=== PATIENT | male | born 1930 | race Caucasian/White ===

== ENCOUNTER 2019-10-19 14:45 | Observation (INO) | payer OTHER ==
--- NOTE | 2019-10-19 15:22 | PDOC ---
Attending Attestation - Resident Resident Name: Melissa Foreman - ED Attending Attestation I have performed the following: I have examined & evaluated the patient, The case was reviewed & discussed with the resident, I agree w/resident's findings & plan, Exceptions are as noted - HPI HPI: 10/19/19 15:23 84y M hx of PM placement (prior syncope) on eliquispresents with complaint of chest pain. The patient complaints of intermittent R sided chest pain, cp seems to only occur in the evenings, describes it as a sharp discomfort associated with nausea w/o vomiting, and with mild sob. Symptoms typically resolve during the day. Pt also endorses having dark color stool the past few days. pt jennie any palpitations, dizziness, vomiting, fever/chills, diarrhea, abd pain, back pain. Patient mentions that the pain seems to be exacerbated by moving of his right arm denies any recent traumas or injuries. exam: GENERAL: The patient is awake, alert, and fully oriented, Nontoxic - in no acute distress. HEAD: Normocephalic, atraumatic. EYES: extraocular movements intact, sclera anicteric, conjunctiva clear. ENT: Normal voice, Moist mucous membranes. NECK: Normal range of motion, supple LUNGS: Breath sounds equal, clear to auscultation bilaterally. No wheezes, no rhonchi, no rales. HEART: Regular rate and rhythm, normal S1 and S2 without murmur, rub or gallop. ABDOMEN: Soft, nontender, No guarding, no rebound. No CVA tenderness EXTREMITIES: Normal range of motion, trace edema, no calf tenderness, negative Homans sign, distal pulses symmetric on palpation NEUROLOGICAL: No facial assymetry, Normal speech, moving all 4 extremity spontaneously symmetrically PSYCH: Normal mood, normal affect. SKIN: Warm, Dry, normal turgor, Differential for the patients chest pain includes but not limited to msk pain, acute coronary syndrome, gastritis, Do not feel that dissection/AAA is is likely due to onset and clincal presentation of symptoms (lack of palpable pulsatile mass, symmetric pulses, lack of associated neurologic sypmtoms and intermittent symptoms only at night) will obtain blood work including: cbc, cmp, UA, UHCG ekg, troponin to r/o acs cxr to r/o acute pulmonary disease - Physicial Exam PE: 10/20/19 10:08 see aobove - Medical Decision Making 10/19/19 16:40 pts labs reviewed trop neg will admit fo further management of chest pain Heart Score/ECG Review - ECG Impressions Comment:: 10/19/19 17:46 Twelve-lead EKG was performed and reviewed by me. AV dual paced rhythm rate of 61
[2019-10-19 16:01] LABS: EOS % 1.8 % (0-4.5); HEMATOCRIT 42.7 % (35.4-49); HEMOGLOBIN 14.4 GM/dL (11.7-16.9); LYMPH % 44.9 % (8-40); MCH 30.9 pg (25.7-33.7); MCHC 33.9 g/dl (32.0-35.9); MEAN CELL VOLUME 91.2 fl (80-96); MEAN PLT VOLUME 9.3 fl (7.5-11.1); NEUT % 41.3 % (42.8-82.8); PLATELET COUNT 223 K/MM3 (134-434); RBC 4.68 M/mm3 (4.00-5.60); RDW 14.4 % (11.9-15.9); WHITE BLOOD COUNT 6.9 K/mm3 (4.0-10.0)
[2019-10-19 16:14] LABS: INR 1.28 (0.83-1.09); PROTHROMBIN TIME (PATIENT) 15.2 SEC (9.7-13.0)
[2019-10-19 16:17] LABS: ACTIVATED PTT 38.7 SECONDS (25.2-36.5)
[2019-10-19 16:22] LABS: ALBUMIN 3.7 g/dl (3.4-5.0); BILIRUBIN,TOTAL 0.6 mg/dL (0.2-1); BLOOD UREA NITROGEN 24.9 mg/dL (7-18); CALCIUM 9.6 mg/dL (8.5-10.1); CREATININE 1.3 mg/dL (0.55-1.3); POTASSIUM 4.5 mmol/L (3.5-5.1); TOT PROT 7.6 g/dl (6.4-8.2)
--- NOTE | 2019-10-19 16:23 | PDOC ---
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 German speaking only. Radiates down R arm and into back. Reports that it was present for the past 3 days, associated with nausea w/o vomiting, mild SOB, and a headache last night which has since resolved. Also states that he had had black stools for the past week. Here today due to persistence of pain , but has not worsened. Describes the pain as pressure, 8/10. Has not taken anything for the pain. Does note that around 4 months ago, he went to an ER due to SOB and was told he had "fluid in his lungs". Has had an echo in the past, but does not remember when or what the result was. Had endoscopy in July 2019 showing gastric polyp. 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. Past History - Past Medical History Allergies/Adverse Reactions: Allergies Allergy/AdvReac Type Severity Reaction Status Date / Time No Known Allergies Allergy Verified 07/28/14 11:21 Home Medications: Ambulatory Orders Metoprolol Tartrate [Lopressor -] 25 mg PO BID 02/25/13 Amlodipine Besylate 10 mg PO DAILY 10/19/19 Brimonidine Tartrate [Alphagan P 0.1% -] 1 drop OU HS 10/19/19 Apixaban [Eliquis] 5 mg PO DAILY 10/20/19 Anemia: No Asthma: No Cancer: No Cardiac Disorders: Yes CVA: No COPD: No CHF: No Dementia: No Diabetes: No GI Disorders: No Disorders: Yes (BPH) HTN: Yes Hypercholesterolemia: Yes Liver Disease: No Seizures: No Thyroid Disease: No - Surgical History Abdominal Surgery: No Appendectomy: No Cardiac Surgery: No Cholecystectomy: No Lung Surgery: Yes (LEFT CHEST TUBE-ACCIDENT) Neurologic Surgery: No Orthopedic Surgery: No - Psycho Social/Smoking Cessation Hx Smoking History: Current every day smoker Information on smoking cessation initiated: No Hx Alcohol Use: No Drug/Substance Use Hx: No Substance Use Type: None Hx Substance Use Treatment: No Review of Systems - Review of Systems Comments:: 10/19/19 17:34 GENERAL/CONSTITUTIONAL: denies fever, chills, diaphoresis, generalized weakness , malaise, loss of appetite, weight change HEAD, EYES, EARS, NOSE AND THROAT: denies rhinorrhea, nasal congestion, throat pain, throat swelling, difficulty swallowing, mouth swelling, ear pain, eye pain , visual changes NEUROLOGIC: endorses headache yesterday which has now resolved. Denies focal weakness or paresthesias, dizziness, unsteady gait, seizure, mental status changes, bladder or bowel incontinence CARDIOVASCULAR: endorses R chest pain. Denies syncope, palpitations, irregular heart rate, lightheadedness, peripheral edema RESPIRATORY: endorses mild SOB. Denies cough, orthopnea, wheezing, stridor, hemoptysis GASTROINTESTINAL: endorses nausea without vomiting. Denies abdominal pain, abdominal distension, diarrhea, constipation, melena, hematochezia GENITOURINARY: denies dysuria, frequency, urgency, hesitancy, hematuria, flank pain, genital pain MUSCULOSKELETAL: denies myalgia, arthralgia, joint swelling, back pain, neck pain SKIN: denies rash, itching, pallor HEMATOLOGIC/IMMUNOLOGIC: denies easy bleeding, easy bruising, lymphadenopathy, frequent infections ENDOCRINE: denies unexplained weight gain, unexplained weight loss, heat intolerance, cold intolerance PSYCHIATRIC: denies anxiety, depression, suicidal or homicidal ideation, hallucinations *Physical Exam - Vital Signs Last Vital Signs Temp Pulse Resp BP Pulse Ox 97.4 F L 79 20 133/66 97 10/19/19 14:50 10/19/19 15:51 10/19/19 15:51 10/19/19 15:51 10/19/19 15:51 - Physical Exam 10/19/19 17:35 Gen: well-developed, well-nourished, NAD Neuro: AAOX4, CN II-XII intact, FTN intact, EOMI, PERRLA, 5/5 strength, SILT HEENT: atraumatic, normocephalic Neck: trachea midline, supple CV: regular rate, regular rhythm, holosystolic blowing murmur Pulm: CTA b/l, no wheezing Abd: soft, non-distended, non-tender MSK: full ROM, intact pulses Extr: no edema, no deformities Skin: warm, dry Heart Score/ECG Review - History History: Moderately suspicious - Electrocardiogram EKG: Non specific repolarization disturbance - Age Age: >/= 65 - Risk Factors Risk Factors Heart Score: Yes Hx Hypertension, Yes Hx Obesity Based on the list above the patient has:: 1-2 risk factors - Troponin Troponin: </= normal limit - Score Heart Score - Total: 5 ED Treatment Course - LABORATORY CBC & Chemistry Diagram: 10/21/19 08:03 10/21/19 08:03 - ADDITIONAL ORDERS Additional order review: Laboratory Results 10/19/19 10/19/19 15:41 15:41 PT with INR 15.20 H INR 1.28 H PTT (Actin FS) 38.7 H Sodium 136 Potassium 4.5 Chloride 104 Carbon Dioxide 27 Anion Gap 5 L BUN 24.9 H Creatinine 1.3 Est GFR (CKD-EPI)AfAm 56.46 Est GFR (CKD-EPI)NonAf 48.72 Random Glucose 106 Calcium 9.6 Total Bilirubin 0.6 AST 29 ALT 32 Alkaline Phosphatase 78 Total Protein 7.6 Albumin 3.7 10/19/19 15:41 RBC 4.68 MCV 91.2 MCHC 33.9 RDW 14.4 MPV 9.3 Neutrophils % 41.3 L Lymphocytes % 44.9 H D Monocytes % 11.0 H Eosinophils % 1.8 Basophils % 1.0 Medical Decision Making - Medical Decision Making 10/19/19 16:56 Concern for ACS vs PNA. Low risk for PE considering Wells score of 0, on Eliquis. - CBC, CMP - EKG, trop - CXR - heme occult 10/19/19 16:59 EKG AV dual paced at 61 bpm. 10/19/19 17:02 Labs unremarkable, trop negative. 10/19/19 17:38 CXR with poor inspiratory effort, no acute issues. Will admit for r/o ACS. Discharge - Discharge Information Problems reviewed: Yes Clinical Impression/Diagnosis: Chest pain Condition: Good Disposition: TRANSFER ACUTE CARE/OTHER HOSP - Admission Yes - Follow up/Referral - Patient Discharge Instructions - Post Discharge Activity
[2019-10-19 17:30] LABS: N-TERMINAL BNP 225.2 pg/ml (5-450)
[2019-10-19] MEDS ORDERED: METOPROLOL TARTRATE 25 MG TABLET (FP) ONE (22:34)
[2019-10-19] MEDS: METOPROLOL TARTRATE 25 MG TABLET (FP) PO SCH (22:46)
--- NOTE | 2019-10-20 00:42 | HP ---
CHIEF COMPLAINT: Chest pain PCP: Cardio: Pepe Gann [phone] HISTORY OF PRESENT ILLNESS: Pt is an 89 y/o M with PMH HTN, PPM (unclear why it was placed, but records show it was replaced in 2015), HLD, BPH who presented to ED with complaint of CP. He is admitted for ACS r/o. Pt is a poor historian. Initially unclear about chief complaint; after prodding , admits to R chest pain for 3 days. Pt also complains of R back pain and R arm pain, but states the pain is not radiating to these regions. He also complains of nausea for the same period accompanied by black stools. He admits to taking pepto bismol for his nausea over the same time course. He has not vomited. Endo Jul 2019 gastric and duodenal polyp. Also stated he had a recent echo, but he does not recall the result. He states that 4 months ago, he had an episode of "water in the lungs" but is unable to provide any meaningful details surrounding that event. He takes Lopressor 25 bid and amlodipine 10 qd for HTN. He also takes eliquis 5 qd, but does not know why. ER course was notable for: (1) EKG AV dual paced at 61 bpm. Trop neg (2) trop neg. (3) Recent Travel: denies PAST MEDICAL HISTORY: HTN, PPM, HLD, BPH, ?AF (irregular cardiac rhythm on exam, pt on coumadin) PAST SURGICAL HISTORY: PPM Social History: Smoking: remote history Alcohol: denies Drugs: denies Allergies No Known Allergies Allergy (Verified 07/28/14 11:21) HOME MEDICATIONS: Home Medications Medication Instructions Recorded Metoprolol Tartrate [Lopressor -] 25 mg PO BID 02/25/13 Amlodipine Besylate 10 mg PO DAILY 10/19/19 Brimonidine Tartrate [Alphagan P 1 drop OU HS 10/19/19 0.1% -] REVIEW OF SYSTEMS CONSTITUTIONAL: Absent: fever, chills, diaphoresis, generalized weakness, malaise, loss of appetite, weight change HEENT: Absent: rhinorrhea, nasal congestion, throat pain, throat swelling, difficulty swallowing, mouth swelling, ear pain, eye pain, visual changes CARDIOVASCULAR: chest pain Absent: , syncope, palpitations, irregular heart rate, lightheadedness, peripheral edema RESPIRATORY: Absent: cough, shortness of breath, dyspnea with exertion, orthopnea, wheezing, stridor, hemoptysis GASTROINTESTINAL: Absent: abdominal pain, abdominal distension, nausea, vomiting, diarrhea, constipation, melena, hematochezia GENITOURINARY: Absent: dysuria, frequency, urgency, hesitancy, hematuria, flank pain, genital pain MUSCULOSKELETAL: Absent: myalgia, arthralgia, joint swelling, back pain, neck pain SKIN: Absent: rash, itching, pallor HEMATOLOGIC/IMMUNOLOGIC: Absent: easy bleeding, easy bruising, lymphadenopathy, frequent infections ENDOCRINE: Absent: unexplained weight gain, unexplained weight loss, heat intolerance, cold intolerance NEUROLOGIC: Absent: headache, focal weakness or paresthesias, dizziness, unsteady gait, seizure, mental status changes, bladder or bowel incontinence PSYCHIATRIC: Absent: anxiety, depression, suicidal or homicidal ideation, hallucinations. PHYSICAL EXAMINATION Vital Signs - 24 hr 10/19/19 10/19/19 10/19/19 14:50 15:15 15:51 Temperature 97.4 F L Pulse Rate 60 Pulse Rate [ 79 Apical] Respiratory 17 20 Rate Blood Pressure 125/59 L Blood Pressure 133/66 [Left Arm] O2 Sat by Pulse 100 97 97 Oximetry (%) 10/19/19 10/19/19 18:00 22:46 Temperature 97.5 F L Pulse Rate Pulse Rate [ 60 68 Apical] Respiratory 18 20 Rate Blood Pressure Blood Pressure 130/62 136/70 [Left Arm] O2 Sat by Pulse 100 99 Oximetry (%) Gen: NAD, AAOx3 HEENT: NCAT, EOMI Neck: supple, no jvd Cardio: rrr, normal s1s2, no systolic murmur Pulm: cta b/l Abd: soft, nontender, nondistended Ext: no edema Laboratory Results - last 24 hr 10/19/19 10/19/19 10/19/19 15:41 15:41 15:41 WBC 6.9 RBC 4.68 Hgb 14.4 Hct 42.7 MCV 91.2 MCH 30.9 MCHC 33.9 RDW 14.4 Plt Count 223 MPV 9.3 Absolute Neuts (auto) 2.8 Neutrophils % 41.3 L Lymphocytes % 44.9 H D Monocytes % 11.0 H Eosinophils % 1.8 Basophils % 1.0 Nucleated RBC % 0 PT with INR 15.20 H INR 1.28 H PTT (Actin FS) 38.7 H Sodium Potassium Chloride Carbon Dioxide Anion Gap BUN Creatinine Est GFR (CKD-EPI)AfAm Est GFR (CKD-EPI)NonAf Random Glucose Calcium Total Bilirubin AST ALT Alkaline Phosphatase Creatine Kinase 105 Troponin I 0.02 B-Natriuretic Peptide 225.2 Total Protein Albumin Stool Occult Blood 10/19/19 10/19/19 15:41 16:30 WBC RBC Hgb Hct MCV MCH MCHC RDW Plt Count MPV Absolute Neuts (auto) Neutrophils % Lymphocytes % Monocytes % Eosinophils % Basophils % Nucleated RBC % PT with INR INR PTT (Actin FS) Sodium 136 Potassium 4.5 Chloride 104 Carbon Dioxide 27 Anion Gap 5 L BUN 24.9 H Creatinine 1.3 Est GFR (CKD-EPI)AfAm 56.46 Est GFR (CKD-EPI)NonAf 48.72 Random Glucose 106 Calcium 9.6 Total Bilirubin 0.6 AST 29 ALT 32 Alkaline Phosphatase 78 Creatine Kinase Troponin I B-Natriuretic Peptide Total Protein 7.6 Albumin 3.7 Stool Occult Blood Negative ASSESSMENT/PLAN: Pt is an 89 y/o M with PMH HTN, PPM (unclear why it was placed, but records show it was replaced in 2015), HLD, BPH who presented to ED with complaint of CP. He is admitted for ACS r/o. Chest pain -EKG reportedly with paced rhythm, no st changes -trop negative -atypical cp -tele/obs -trend trop -Cardio consulted HTN -c/w amlodipine, lopressor ? Cardiac history -pt is a poor historian. Unclear what cardiac problems he has. Described episode of water in lungs. ? CHF. -Irregular rhythm on exam and on eliquis. ? paroxysmal AF -will need to call his MD to clarify history. -in light of recent echo, will wait to get result from outpt cardio before repeating R/o GIB -dark stools x 3 days -taking pepto bismol -FOBT neg -in light of hx gastric/duodenal polyp, will repeat FOBT. Consider GI consult Visit type - Emergency Visit Emergency Visit: Yes ED Registration Date: 10/19/19 Care time: The patient presented to the Emergency Department on the above date and was hospitalized for further evaluation of their emergent condition. - New Patient This patient is new to me today: Yes Date on this admission: 10/20/19 - Critical Care Critical Care patient: No ATTENDING PHYSICIAN STATEMENT I saw and evaluated the patient. I reviewed the resident's note and discussed the case with the resident. I agree with the resident's findings and plan as documented. SUBJECTIVE: OBJECTIVE: ASSESSMENT AND PLAN:
[2019-10-20 00:55] LABS: INR 1.28 (0.83-1.09); PROTHROMBIN TIME (PATIENT) 15.2 SEC (9.7-13.0)
--- NOTE | 2019-10-20 00:56 | PN ---
Teaching Attending Note Name of Resident: Giovany Marinelli ATTENDING PHYSICIAN STATEMENT I saw and evaluated the patient. I reviewed the resident's note and discussed the case with the resident. I agree with the resident's findings and plan as documented. 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 OBJECTIVE: Last Vital Signs Temp Pulse Resp BP Pulse Ox 97.5 F L 68 20 136/70 99 10/19/19 18:00 10/19/19 22:46 10/19/19 22:46 10/19/19 22:46 10/19/19 22:46 On physical exam patient was a comfortable appearing elderly man in no apparent distress, alert and oriented. Head was atraumatic normocephalic neck was supple with no JVD. Lungs are clear to auscultation bilaterally, no chest wall tenderness to palpation. Heart sounds were S1, S2 with systolic crescendo decrescendo murmur. Abdomen was soft, nontender no pedal edema appreciated on lower extremities. Abnormal Lab Results 10/19/19 10/19/19 10/19/19 15:41 15:41 15:41 Neutrophils % 41.3 L Lymphocytes % 44.9 H D Monocytes % 11.0 H PT with INR 15.20 H INR 1.28 H PTT (Actin FS) 38.7 H Anion Gap 5 L BUN 24.9 H 10/20/19 00:03 Neutrophils % Lymphocytes % Monocytes % PT with INR 15.20 H INR 1.28 H PTT (Actin FS) Anion Gap BUN EKG reviewed appears to be intermittently paced rhythm Chest x-ray appreciated, sclerotic aortic knob, high right lupe-diaphragm, left chest cardiac device in place. ASSESSMENT AND PLAN: 89-year-old man with atypical chest pain, EKG is paced rhythm troponin negative Telemetry observation Aspirin Statin Continue with home dose beta-alexandra Nitroglycerin as needed of chest pain Transthoracic echo N.p.o. for possible cardiac stress test Cardiology consultconsider cardiac device interrogation #CKD Nephrology consult Renal ultrasound Avoid nephrotoxins Control blood pressure A1c #History of atrial fibrillation on anticoagulation Continue with apixaban for anticoagulation DVT prophylaxisapixaban
[2019-10-20 00:58] LABS: ACTIVATED PTT 35.6 SECONDS (25.2-36.5)
[2019-10-20 09:02] LABS: BASO % 0.8 % (0-2.0); HEMATOCRIT 43.5 % (35.4-49); HEMOGLOBIN 14.7 GM/dL (11.7-16.9); LYMPH % 44.5 % (8-40); MCHC 33.7 g/dl (32.0-35.9); MEAN CELL VOLUME 91.9 fl (80-96); MEAN PLT VOLUME 9.4 fl (7.5-11.1); MONO % 9.8 % (3.8-10.2); NEUT % 42.9 % (42.8-82.8); PLATELET COUNT 222 K/MM3 (134-434); RBC 4.74 M/mm3 (4.00-5.60); RDW 14.9 % (11.9-15.9); WHITE BLOOD COUNT 6.3 K/mm3 (4.0-10.0)
--- NOTE | 2019-10-20 09:03 | PN ---
Progress Note, Physician Chief Complaint: Patient complaint of chest wall pain not in acute distress. History of Present Illness: Elderly man Yakut-speaking history of hypertension, CKD, pediculated fibrillation on anticoagulation status post pacemaker follow-up [facility] no known history of CAD as per cardiology note, history of congestive heart failure present with wearing chest wall pain with dyspnea on exertion at the time of examination is stable, EKG shows no acute ST-T changes troponin I are negative evaluated by cardiology recommended echocardiogram for evaluation of degree of aortic stenosis. - Current Medication List Current Medications: Active Medications Amlodipine Besylate (Norvasc -) 10 mg PO DAILY RIVERA Apixaban (Eliquis -) 5 mg PO DAILY RIVERA Metoprolol Tartrate (Lopressor -) 25 mg PO BID [facility] Last Admin: 10/19/19 22:46 Dose: 25 mg - Objective Vital Signs: Vital Signs Temperature 98.5 F 10/20/19 06:26 Pulse Rate 64 10/20/19 06:26 Respiratory Rate 18 10/20/19 06:26 Blood Pressure 106/56 L 10/20/19 06:26 O2 Sat by Pulse Oximetry (%) 98 10/20/19 08:09 General: Elderly man, comfortable, not in distress HEENT; mucous membranes moist, no anemia, no jaundice, PERRLA, no nystagmus Neck: No JVD, supple, no bruit, thyroid palpably normal, normal carotid pulsations. Chest: Nontender, clear to auscultation bilaterally CVS: S1-S2 irregular systolic murmur in aortic area no /gallop/rub Abdomen: Nondistended, soft, bowel sounds present. Extremities: Trace edema., No calf tenderness, pulses present SECOND OFFICER: AO X3 , no gross motor sensory deficit Labs: CBC, BMP 10/20/19 08:30 INR, PTT INR 1.28 (0.83-1.09) H 10/20/19 00:03 Problem List - Problems (1) Chest pain Assessment/Plan: Atypical chest wall pain, normal serial cardiogram no acute ST-T changes, evaluated by cardiology recommended no further work-up for ACS. Will continue beta-alexandra and apixaban for atrial fibrillation. Problems reviewed: Yes Code(s): R07.9 - CHEST PAIN, UNSPECIFIED (2) Aortic stenosis Assessment/Plan: Systolic murmur in the aortic area follow-up echocardiogram. Problems reviewed: Yes Code(s): I35.0 - NONRHEUMATIC AORTIC (VALVE) STENOSIS (3) Paroxysmal atrial fibrillation Assessment/Plan: Continue apixaban and metoprolol. Problems reviewed: Yes Code(s): I48.0 - PAROXYSMAL ATRIAL FIBRILLATION (4) Hypertension Assessment/Plan: Continue amlodipine. Problems reviewed: Yes Code(s): I10 - ESSENTIAL (PRIMARY) HYPERTENSION
[2019-10-20 09:29] LABS: ALBUMIN 3.9 g/dl (3.4-5.0); BLOOD UREA NITROGEN 23.4 mg/dL (7-18); CALCIUM 9.7 mg/dL (8.5-10.1); CREATININE 1.3 mg/dL (0.55-1.3); MAGNESIUM 2.2 mg/dL (1.8-2.4); POTASSIUM 4.5 mmol/L (3.5-5.1); TOT PROT 7.6 g/dl (6.4-8.2)
[2019-10-20] MEDS ORDERED: amLODIPine BESYLATE 10 MG TABLET (FP) PO SCH (10:00)
[2019-10-20] MEDS ORDERED: APIXABAN 5 MG TABLET PO SCH (10:00)
[2019-10-20] MEDS ORDERED: PT OWN MED DRAWER 7, Y5N ONE (10:29)
[2019-10-20] MEDS: METOPROLOL TARTRATE 25 MG TABLET (FP) PO SCH ×2 (10:46→21:09)
--- NOTE | 2019-10-20 14:30 | CON.CARD ---
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 No known ho CAD although reports previous admission for CHF. Has reproducible Rt sided chest and shoulder pain. No dyspnea. There has been dyspnea with effort. No edema.Patient is on Eliquis. - Alcohol/Substance Use Hx Alcohol Use: No - Smoking History Smoking history: Current every day smoker Home Medications - Allergies Allergies/Adverse Reactions: Allergies Allergy/AdvReac Type Severity Reaction Status Date / Time No Known Allergies Allergy Verified 07/28/14 11:21 - Home Medications Home Medications: Ambulatory Orders Metoprolol Tartrate [Lopressor -] 25 mg PO BID 02/25/13 Amlodipine Besylate 10 mg PO DAILY 10/19/19 Brimonidine Tartrate [Alphagan P 0.1% -] 1 drop OU HS 10/19/19 Apixaban [Eliquis] 5 mg PO DAILY 10/20/19 Review of Systems - Review of Systems Constitutional: reports: No Symptoms Eyes: reports: No Symptoms HENT: reports: No Symptoms Neck: reports: No Symptoms Cardiovascular: reports: Chest Pain Respiratory: reports: No Symptoms Gastrointestinal: reports: No Symptoms Genitourinary: reports: No Symptoms Breasts: reports: No Symptoms Reported Vital Signs: Vital Signs Temperature 97.6 F 10/20/19 10:00 Pulse Rate 59 L 10/20/19 10:00 Respiratory Rate 18 10/20/19 10:00 Blood Pressure 123/76 10/20/19 10:00 O2 Sat by Pulse Oximetry (%) 96 10/20/19 10:00 Constitutional: Yes: Well Nourished, No Distress Eyes: Yes: Conjunctiva Clear, EOM Intact HENT: Yes: Atraumatic, Normocephalic Neck: Yes: Supple, Trachea Midline Respiratory: Yes: Regular, CTA Bilaterally Gastrointestinal: Yes: Normal Bowel Sounds Cardiovascular: Yes: Regular Rate and Rhythm JVD: No Carotid Bruit: No PMI: Non-Displaced Heart Sounds: Yes: S1 Murmur: Yes: Systolic Murmur (late peaking Sys M LUSB.) Edema: No - Other Data Labs, Other Data: CBC, BMP 10/20/19 08:30 10/20/19 08:30 INR, PTT INR 1.28 (0.83-1.09) H 10/20/19 00:03 Troponin, BNP 10/19/19 10/20/19 10/20/19 15:41 02:25 08:30 Troponin I 0.02 0.02 0.03 B-Natriuretic Peptide 225.2 Troponin, BNP 10/19/19 10/20/19 10/20/19 15:41 02:25 08:30 Troponin I 0.02 0.02 0.03 B-Natriuretic Peptide 225.2 Apaced old [facility] - Results Chest X-ray: Report Reviewed Problem List - Problems (1) Chest pain Code(s): R07.9 - CHEST PAIN, UNSPECIFIED Assessment/Plan 89 M DM, Paroxysmal AF on AC, ho CHF and PPM. Admitted with chest pain. murmur is noted. 1. Chest pain. Atypical and reproducible. Do not feel that this is cardiac. Now resolved ECG without ischemic changes. ECG suggest possible old Inferior wall infarct. Continue medical managment of presumed CAD Statin BP control 2. Aortic stenosis murmur: Suspect significant stenosis is present. Echocardiogram 3. Afib Continue Eliquis 5mg bid.
[2019-10-20 17:38] VITALS: BMI 35.9
[2019-10-21 09:01] LABS: BASO % 0.7 % (0-2.0); EOS % 2.1 % (0-4.5); HEMATOCRIT 43.2 % (35.4-49); HEMOGLOBIN 14.6 GM/dL (11.7-16.9); LYMPH % 44.9 % (8-40); MCH 30.9 pg (25.7-33.7); MCHC 33.9 g/dl (32.0-35.9); MEAN CELL VOLUME 91.3 fl (80-96); MEAN PLT VOLUME 9.4 fl (7.5-11.1); MONO % 11.1 % (3.8-10.2); NEUT % 41.2 % (42.8-82.8); PLATELET COUNT 216 K/MM3 (134-434); RBC 4.73 M/mm3 (4.00-5.60); RDW 14.8 % (11.9-15.9); WHITE BLOOD COUNT 5.9 K/mm3 (4.0-10.0)
[2019-10-21 09:24] LABS: BLOOD UREA NITROGEN 25.2 mg/dL (7-18); CALCIUM 9.6 mg/dL (8.5-10.1); CREATININE 1.2 mg/dL (0.55-1.3); POTASSIUM 4.3 mmol/L (3.5-5.1)
[2019-10-21] MEDS: METOPROLOL TARTRATE 25 MG TABLET (FP) PO SCH ×2 (09:25→22:06)
--- NOTE | 2019-10-21 09:47 | EKG ---
Test Reason : Blood Pressure : / mmHG Vent. Rate : 076 BPM Atrial Rate : 076 BPM P-R Int : 322 ms QRS Dur : 098 ms QT Int : 364 ms P-R-T Axes : 000 -36 -63 degrees QTc Int : 409 ms AV dual-paced rhythm with prolonged AV conduction IN A PATTERN OF BIGEMINY ABNORMAL ECG WHEN COMPARED WITH ECG OF 20-FEB-2006 09:24, ELECTRONIC VENTRICULAR PACEMAKER HAS REPLACED SINUS RHYTHM Confirmed by Scott Key ([id number]) on 10/21/2019 9:47:55 AM Referred By: Confirmed By:Scott Key
--- NOTE | 2019-10-21 09:53 | EKG ---
Test Reason : Blood Pressure : / mmHG Vent. Rate : 061 BPM Atrial Rate : 061 BPM P-R Int : 354 ms QRS Dur : 126 ms QT Int : 412 ms P-R-T Axes : -26 -41 -60 degrees QTc Int : 414 ms AV dual-paced rhythm with prolonged AV conduction ABNORMAL ECG WHEN COMPARED WITH ECG OF 20-FEB-2006 09:24, ELECTRONIC VENTRICULAR PACEMAKER HAS REPLACED SINUS RHYTHM Confirmed by Scott Key ([id number]) on 10/21/2019 9:53:36 AM Referred By: Confirmed By:Scott Key
[2019-10-21] MEDS ORDERED: amLODIPine BESYLATE 10 MG TABLET (FP) PO SCH (10:00)
[2019-10-21] MEDS ORDERED: APIXABAN 5 MG TABLET PO SCH (10:00)
--- NOTE | 2019-10-21 13:17 | PN ---
Physical Exam: SUBJECTIVE: Patient seen and examined at bedside, awaiting Echo to evaluate for OBJECTIVE: Vital Signs Period Temp Pulse Resp BP Sys/Longoria Pulse Ox Last 24 Hr 97.8 F-98.3 F 60-65 18-22 108-142/50-71 96-96 General: Elderly man, comfortable, not in distress HEENT; mucous membranes moist, no anemia, no jaundice, PERRLA, no nystagmus Neck: No JVD, supple, no bruit, thyroid palpably normal, normal carotid pulsations. Chest: Nontender, clear to auscultation bilaterally CVS: S1-S2 irregular MAHAD+ Abdomen: Nondistended, soft, bowel sounds present. Extremities: Trace edema., No calf tenderness, pulses present TONGUE STITCHER: AO X3 , no gross motor sensory deficit Laboratory Results - last 24 hr 10/21/19 10/21/19 08:03 08:03 WBC 5.9 RBC 4.73 Hgb 14.6 Hct 43.2 MCV 91.3 MCH 30.9 MCHC 33.9 RDW 14.8 Plt Count 216 MPV 9.4 Absolute Neuts (auto) 2.4 Neutrophils % 41.2 L Lymphocytes % 44.9 H Monocytes % 11.1 H Eosinophils % 2.1 Basophils % 0.7 Nucleated RBC % 0 Sodium 137 Potassium 4.3 Chloride 104 Carbon Dioxide 27 Anion Gap 6 L BUN 25.2 H Creatinine 1.2 Est GFR (CKD-EPI)AfAm 62.20 Est GFR (CKD-EPI)NonAf 53.67 Random Glucose 112 H Calcium 9.6 Active Medications Generic Name Dose Route Start Last Admin Trade Name Freq PRN Reason Stop Dose Admin Amlodipine Besylate 10 mg 10/21/19 10:00 10/21/19 09:25 Norvasc - PO 10 mg DAILY RIVERA Administration Apixaban 5 mg 10/21/19 10:00 Eliquis - PO DAILY R[facility] Metoprolol Tartrate 25 mg 10/20/19 22:00 10/21/19 09:25 Lopressor - PO 25 mg BID RIVERA Administration ASSESSMENT/PLAN: 89 M h/o HTN, PPM (unclear why it was placed, but records show it was replaced in 2015), HLD, BPH who presented to ED with complaint of CP. Admitted for evaluation of CP. Chest pain -EKG reportedly with paced rhythm, no st changes -trop negative -atypical cp -tele/obs -trend trop -Cardio consulted HTN -c/w amlodipine, lopressor ? Cardiac history -pt is a poor historian. Unclear what cardiac problems he has. Described episode of water in lungs. ? CHF. -Irregular rhythm on exam and on eliquis. ? paroxysmal AF -will need to call his MD to clarify history. -in light of recent echo, will wait to get result from outpt cardio before repeating R/o GIB -dark stools x 3 days -taking pepto bismol -FOBT neg -in light of hx gastric/duodenal polyp, will repeat FOBT. Consider GI consult
--- NOTE | 2019-10-21 14:08 | ECHO ---
Name: RICH LYNCH Exam:Adult Echocardiogram Study Date: 10/21/2019 11:57 AM Age: 89 yrs Reason For Study: Aortics Stenosis Height: 69 in Weight: 240 lb BSA: 2.2 m2 MMode/2D Measurements & Calculations LA dimension: 4.1 cm LVOT diam: 1.8 cm ACS: 1.4 cm LVLd ap4: 9.0 cm SV(MOD-sp4): 63.0 ml EDV(MOD-sp4): 144.0 ml LVLs ap4: 8.4 cm ESV(MOD-sp4): 81.0 ml Doppler Measurements & Calculations MV E max sissy: 71.6 cm/sec MVA(VTI): 1.9 cm2 MV A max sissy: 92.8 cm/sec MV V2 max: 94.3 cm/sec MV E/A: 0.77 MV max P.6 mmHg MV dec time: 0.21 sec MV V2 mean: 58.3 cm/sec MV mean P.6 mmHg MV V2 VTI: 24.6 cm Ao V2 max: 285.2 cm/sec LV V1 max P.4 mmHg Ao max P.7 mmHg LV V1 mean P.5 mmHg Ao V2 mean: 193.1 cm/sec LV V1 max: 77.5 cm/sec Ao mean P.3 mmHg LV V1 mean: 56.5 cm/sec Ao V2 VTI: 64.6 cm LV V1 VTI: 19.7 cm DIAMOND(I,D): 0.74 cm2 DIAMOND(V,D): 0.66 cm2 SV(LVOT): 47.9 ml TR max sissy: 286.4 cm/sec TR max P.8 mmHg PA V2 max: 75.5 cm/sec PA max P.3 mmHg Procedure The study was technically difficult with many images being suboptimal in quality. Study Quality: Poor . Left Ventricle The left ventricle is normal in size. There is mild concentric left ventricular hypertrophy. The left ventricular ejection fraction is normal. Ejection Fraction = 55%. The transmitral spectral Doppler fl ow pattern is suggestive of impaired LV relaxation. Right Ventricle The right ventricle is normal in size and function. Atria Normal left and right atrial size and function. Mitral Valve There is mild to moderate mitral valve thickening. There is no mitral regurgitation noted. Tricuspid Valve The tricuspid valve is not well visualized. There is mild tricuspid regurgitation. Right ventricular systolic pressure is elevated at 30-40mmHg. Aortic Valve Calcified, likely severe stenosis. Moderate to severe stenosis, likely severe. Pulmonic Valve The pulmonic valve is not well visualized. Great Vessels The aortic root is not well visualized. Pericardium/Pleura There is no pericardial effusion. Interpretation Summary Technically poor study LV: Normal size, likely mild LVH,normal systol;ic function,EF 55%,impaired relaxation RV: Normal Calcified aortic valve, moderate to severe (likely severe) stenosis. TDS Limited [place] 10/21/2019 02:08 PM
--- NOTE | 2019-10-21 16:00 | PN ---
Progress Note, Physician History of Present Illness: pt seen and examined and discussed with family at bedside. dizziness this am. intermittent chest pain. - Current Medication List Current Medications: Active Medications Amlodipine Besylate (Norvasc -) 10 mg PO DAILY [facility] Last Admin: 10/21/19 09:25 Dose: 10 mg Apixaban (Eliquis -) 5 mg PO DAILY [facility] Metoprolol Tartrate (Lopressor -) 25 mg PO BID [facility] Last Admin: 10/21/19 09:25 Dose: 25 mg - Objective Vital Signs: Vital Signs Temperature 98.3 F 10/21/19 13:00 Pulse Rate 61 10/21/19 13:00 Respiratory Rate 10/21/19 13:00 Blood Pressure 122/68 10/21/19 13:00 O2 Sat by Pulse Oximetry (%) 96 10/20/19 21:00 Constitutional: Yes: No Distress, Calm Eyes: Yes: Conjunctiva Clear, EOM Intact HENT: Yes: Atraumatic, Normocephalic Neck: Yes: Supple, Trachea Midline Cardiovascular: Yes: Regular Rate and Rhythm, Murmur, S1. No: Bradycardia, Tachycardia, Pulse Irregular, Bruit, JVD, Gallop, Rub, S2, S3, S4, Varicosities Respiratory: Yes: Regular, CTA Bilaterally. No: Rales, Rhonchi, Wheezes Gastrointestinal: Yes: Normal Bowel Sounds, Soft. No: Distention, Tenderness Musculoskeletal: Yes: WNL Extremities: Yes: WNL Edema: No Peripheral Pulses WNL: Yes Neurological: Yes: Alert, Oriented Psychiatric: Yes: Alert, Oriented Labs: CBC, BMP 10/21/19 08:03 10/21/19 08:03 INR, PTT INR 1.28 (0.83-1.09) H 10/20/19 00:03 - ....Imaging Chest X-ray: Report Reviewed, Image Reviewed EKG: Report Reviewed, Image Reviewed Other: Report Reviewed, Image Reviewed Assessment/Plan 89 M DM, Paroxysmal AF on AC, ho CHF and PPM. Admitted with chest pain. murmur is noted. 1. Chest pain. Atypical and reproducible. -likely non-cardiac -however given severe aortic stenosis will need additional evaluation -cont Statin -BP control -further work up at [facility] 2. Aortic stenosis -echo today shows mod to sev aortic stenosis, likely severe -plan for transfer to [facility] for further evaluation, possible TAVR 3. Afib HR adequately controlled planned for Eliquis 5mg bid.
--- NOTE | 2019-10-21 17:05 | DS ---
Physical Exam: SUBJECTIVE: Patient seen and examined at beside, notified by Cardiology team that patient requires transfer to [facility] for further cardiac workup and possible TAVR. otherwise pt. still endorses some MONZON and intermittent CP. VS otherwise stable. OBJECTIVE: Vital Signs Period Temp Pulse Resp BP Sys/Longoria Pulse Ox Last 24 Hr 97.8 F-98.3 F 60-62 18-22 112-142/50-70 96 PHYSICAL EXAM General: Elderly man, comfortable, not in distress, Sitting up in bed, family at bedside HEENT; mucous membranes moist, no anemia, no jaundice, PERRLA, no nystagmus Neck: No JVD, supple, no bruit, thyroid palpably normal, normal carotid pulsations. Chest: Nontender, clear to auscultation bilaterally CVS: Irregularly irregular, 5/6 MAHAD most prominent in upper LSB. Abdomen: Nondistended, soft, bowel sounds present. Extremities: Trace edema., No calf tenderness, pulses present STAGE TECHNICIAN: AO X3 , no gross motor sensory deficit LABS Laboratory Results - last 24 hr 10/21/19 10/21/19 08:03 08:03 WBC 5.9 RBC 4.73 Hgb 14.6 Hct 43.2 MCV 91.3 MCH 30.9 MCHC 33.9 RDW 14.8 Plt Count 216 MPV 9.4 Absolute Neuts (auto) 2.4 Neutrophils % 41.2 L Lymphocytes % 44.9 H Monocytes % 11.1 H Eosinophils % 2.1 Basophils % 0.7 Nucleated RBC % 0 Sodium 137 Potassium 4.3 Chloride 104 Carbon Dioxide 27 Anion Gap 6 L BUN 25.2 H Creatinine 1.2 Est GFR (CKD-EPI)AfAm 62.20 Est GFR (CKD-EPI)NonAf 53.67 Random Glucose 112 H Calcium 9.6 Home Medications Medication Instructions Recorded Metoprolol Tartrate [Lopressor -] 25 mg PO BID 02/25/13 Amlodipine Besylate 10 mg PO DAILY 10/19/19 Brimonidine Tartrate [Alphagan P 1 drop OU HS 10/19/19 0.1% -] Apixaban [Eliquis] 5 mg PO DAILY 10/20/19 Current Medications Generic Name Dose Route Start Last Admin Trade Name Freq PRN Reason Stop Dose Admin Amlodipine Besylate 10 mg 10/21/19 10:00 10/21/19 09:25 Norvasc - PO 10 mg DAILY RIVERA Administration Apixaban 5 mg 10/21/19 10:00 Eliquis - PO DAILY [facility] Metoprolol Tartrate 25 mg 10/20/19 22:00 10/21/19 09:25 Lopressor - PO 25 mg BID RIVERA Administration HOSPITAL COURSE: 89 M h/o HTN, PPM (unclear why it was placed, but records show it was replaced in 2016), HLD, BPH who presented to ED with complaint of CP. Admitted for evaluation of CP and SOB. Patient underwent workup with cardiac echo which showed severe aortic stenosis requiring further cardiac workup at [facility] as per Cardiology team. Patient also suffers from paroxysmal Afib , in which anticoagulation was held due to refractory nose bleeding which resulted in dizziness. Patient to be transferred to [facility] for further workup of his severe aortic stenosis, will likely need cardiac cath and TAVR, patient and patient's family notified of findings and plan and they agree with it. Chest pain atypical, reproducible no clinical signs for ACS Tylenol PRN rest of management as per [facility] team HTN -c/w amlodipine, lopressor ?H/o CAD s/p PPM -pt and his family are poor historians. Unclear what cardiac problems he has, poor follow up with Cardiology team at [facility] Cont. BB, statin, ASA HLD cont. statin BPH monitor urine output Flomax as needed for urinary retention History of GIB and nose bleeds AC held pending FOBT FOBT negative Will restart Eliquis 5mg BID, ENT evaluation PRN if patient continues to nose bleed on Eliquis no signs of active bleeding currently, patient is at risk for CVA and embolic events if not anticoagulated. Dispositon: Transfer to [facility] under Dr. Tesfaye's service (Cardiology group). Date of Admission:10/19/19 Date of Discharge: 10/21/19 Minutes to complete discharge: 40 Discharge Summary Problems reviewed: Yes Reason For Visit: CHEST PAIN Current Active Problems Aortic stenosis (Acute) Chest pain (Acute) Hypertension (Acute) Paroxysmal atrial fibrillation (Acute) - Instructions - Home Medications Comprehensive Discharge Medication List: Ambulatory Orders Metoprolol Tartrate [Lopressor -] 25 mg PO BID 02/25/13 Amlodipine Besylate 10 mg PO DAILY 10/19/19 Brimonidine Tartrate [Alphagan P 0.1% -] 1 drop OU HS 10/19/19 Apixaban [Eliquis] 5 mg PO DAILY 10/20/19 This patient is new to me today: Yes Date on this admission: 10/21/19 Emergency Visit: Yes ED Registration Date: 10/19/19 Care time: The patient presented to the Emergency Department on the above date and was hospitalized for further evaluation of their emergent condition. Critical Care patient: No - Discharge Referral Referred to [facility] Med P.C.: No
[2019-10-22 06:35] VITALS: BP 125/67; PULSE 62; TEMP 98.5
== END 2019-10-22 07:54 | disposition short-term general hospital (02) ==
LOC: JER 14:45 → JERBED 17:33 → J5S 10-20 14:45
PROVIDERS: ADMIT Internal Medicine
DX: R07.89 Other chest pain (principal); I12.9 Hypertensive chronic kidney disease with stage 1 through stage 4 chronic kidney disease, or unspecified chronic kidney disease; N18.9 Chronic kidney disease, unspecified; I35.0 Nonrheumatic aortic (valve) stenosis; I48.0 Paroxysmal atrial fibrillation; E78.5 Hyperlipidemia, unspecified; N40.0 Benign prostatic hyperplasia without lower urinary tract symptoms; F17.210 Nicotine dependence, cigarettes, uncomplicated; Z95.0 Presence of cardiac pacemaker; Z79.01 Long term (current) use of anticoagulants
CPT/HCPCS: 36415; 71045-TC-FY; 71046-TC-FY; 80048; 80053; 82272; 82550; 83735; 83880; 84484; 85025; 85610; 85730; 93005; 93010; 93306-TC; 99285-25; G0378

== ENCOUNTER 2020-09-02 12:32 | Inpatient (IN) | payer OTHER ==
[2020-09-02] MEDS ORDERED: ACETAMINOPHEN 1000 MG/100 ML BAG IVPB ONE (13:20)
[2020-09-02] MEDS ORDERED: ACETAMINOPHEN INJECTION 100 ML IVPB ONE (14:09)
[2020-09-02] MEDS ORDERED: DEXAMETHASONE SOD PHOSPHATE 10 MG/1 ML VIAL IVPUSH ONE (14:28)
[2020-09-02] MEDS ORDERED: DEXAMETHASONE SOD PHOSPHATE 10 MG/1 ML VIAL ONE (15:02)
[2020-09-02 15:21] LABS: BASO % 0.9 % (0-2.0); EOS % 0.6 % (0-4.5); HEMATOCRIT 41.6 % (35.4-49); LYMPH % 20.9 % (8-40); MCH 30.9 pg (25.7-33.7); MCHC 33.5 g/dl (32.0-35.9); MEAN CELL VOLUME 92.1 fl (80-96); MEAN PLT VOLUME 9.8 fl (7.5-11.1); MONO % 20.5 % (3.8-10.2); NEUT % 57.1 % (42.8-82.8); PLATELET COUNT 164 K/MM3 (134-434); RBC 4.52 M/mm3 (4.00-5.60); RDW 14.6 % (11.9-15.9); WHITE BLOOD COUNT 6.6 K/mm3 (4.0-10.0)
[2020-09-02 15:26] LABS: INR 1.5 (0.83-1.09); PROTHROMBIN TIME (PATIENT) 18.2 SEC (9.7-13.0)
[2020-09-02 15:54] LABS: PLATELET ESTIMATE ADEQUATE
[2020-09-02 15:55] LABS: BLOOD UREA NITROGEN 18.7 mg/dL (7-18); MAGNESIUM 1.9 mg/dL (1.8-2.4)
[2020-09-02 15:58] LABS: CREATININE 1.2 mg/dL (0.55-1.3)
[2020-09-02 16:00] LABS: BILIRUBIN,TOTAL 0.8 mg/dL (0.2-1); TOT PROT 7.7 g/dl (6.4-8.2)
[2020-09-02 17:03] LABS: N-TERMINAL BNP 748.2 pg/ml (5-450)
[2020-09-02] MEDS ORDERED: ACETAMINOPHEN 1000 MG/100 ML BAG IVPB PRN (19:55)
[2020-09-02] MEDS ORDERED: INSULIN SLIDING SCALE (NOVOLOG) 1 VIAL SQ SCH (22:00)
[2020-09-02] MEDS ORDERED: APIXABAN 5 MG TABLET PO SCH ×2 (22:00)
[2020-09-02] MEDS ORDERED: ASCORBIC ACID 500 MG TABLET (FP) ONE (22:18)
[2020-09-02] MEDS ORDERED: FAMOTIDINE 20 MG TABLET ONE (22:18)
[2020-09-02] MEDS: BRIMONIDINE TARTRATE 0.1% OPHTHALMIC 5 ML BOTTLE OU SCH (22:23)
[2020-09-02] MEDS: FAMOTIDINE 20 MG TABLET PO SCH (22:24)
[2020-09-02] MEDS: ASCORBIC ACID 500 MG TABLET (FP) PO SCH (22:24)
[2020-09-02] MEDS: LATANOPROST 0.005% OPHTH SOLN 2.5ML BOTTLE OU SCH (22:24)
[2020-09-02] MEDS: DORZOLAMIDE 2% HCL OPHTHALMIC SOLUTION 10 ML BOTTLE OU SCH (22:24)
[2020-09-03] MEDS ORDERED: SODIUM CHLORIDE 250 ML IV STA (06:47)
[2020-09-03] MEDS ORDERED: SODIUM CHLORIDE 500 ML IV STA (06:48)
[2020-09-03 07:29] LABS: BASO % 0.5 % (0-2.0); HEMATOCRIT 41.6 % (35.4-49); HEMOGLOBIN 14.2 GM/dL (11.7-16.9); LYMPH % 23.9 % (8-40); MCH 31.3 pg (25.7-33.7); MEAN PLT VOLUME 9.5 fl (7.5-11.1); MONO % 9.7 % (3.8-10.2); NEUT % 65.9 % (42.8-82.8); PLATELET COUNT 173 K/MM3 (134-434); RBC 4.52 M/mm3 (4.00-5.60); RDW 14.6 % (11.9-15.9); WHITE BLOOD COUNT 5.2 K/mm3 (4.0-10.0)
[2020-09-03 07:50] LABS: BLOOD UREA NITROGEN 20.3 mg/dL (7-18); CALCIUM 9.3 mg/dL (8.5-10.1); MAGNESIUM 1.9 mg/dL (1.8-2.4)
[2020-09-03 07:51] LABS: CREATININE 1.2 mg/dL (0.55-1.3)
[2020-09-03 07:52] LABS: PHOSPHOROUS 3.7 mg/dL (2.5-4.9); TOT PROT 7.8 g/dl (6.4-8.2)
[2020-09-03 07:55] LABS: BILIRUBIN,TOTAL 0.7 mg/dL (0.2-1)
[2020-09-03] MEDS ORDERED: DEXAMETHASONE SOD PHOSPHATE 10 MG/1 ML VIAL ONE (09:02)
[2020-09-03] MEDS ORDERED: ASCORBIC ACID 500 MG TABLET (FP) ONE (09:02)
[2020-09-03] MEDS ORDERED: LISINOPRIL 20 MG TABLET ONE (09:03)
[2020-09-03] MEDS ORDERED: APIXABAN 5 MG TABLET ONE (09:03)
[2020-09-03] MEDS ORDERED: FAMOTIDINE 20 MG TABLET ONE (09:03)
[2020-09-03] MEDS ORDERED: ZINC SULFATE 220 MG CAPSULE (FP) ONE (09:03)
[2020-09-03] MEDS ORDERED: CHOLECALCIFEROL (VIT D3) 1,000 UNIT (25 MCG) TABLET ONE (09:04)
[2020-09-03] MEDS: ASCORBIC ACID 500 MG TABLET (FP) PO SCH ×2 (09:38→22:26)
[2020-09-03] MEDS: FAMOTIDINE 20 MG TABLET PO SCH ×2 (09:38→22:28)
[2020-09-03] MEDS: DUTASTERIDE 0.5 MG CAP (FP) PO SCH (09:38)
[2020-09-03] MEDS: DEXAMETHASONE SOD PHOSPHATE 4 MG/1 ML VIAL IVPUSH SCH (09:38)
[2020-09-03] MEDS: DORZOLAMIDE 2% HCL OPHTHALMIC SOLUTION 10 ML BOTTLE OU SCH ×2 (09:38→23:07)
[2020-09-03] MEDS: CHOLECALCIFEROL (VIT D3) 1,000 UNIT (25 MCG) TABLET PO SCH (09:39)
[2020-09-03] MEDS: APIXABAN 5 MG TABLET PO SCH ×2 (09:39→22:26)
[2020-09-03] MEDS: ZINC SULFATE 220 MG CAPSULE (FP) PO SCH (09:39)
[2020-09-03] MEDS: LISINOPRIL 20 MG TABLET PO SCH (09:39)
[2020-09-03] MEDS ORDERED: APIXABAN 5 MG TABLET PO SCH (10:00)
[2020-09-03] MEDS ORDERED: ENOXAPARIN NA (PORCINE) 40 MG/0.4 ML DISP.SYRIN SQ SCH (10:00)
[2020-09-03] MEDS ORDERED: REMDESIVIR 200 MG in SODIUM CHLORIDE 210 ML IVPB ONE (13:00)
[2020-09-03 19:23] VITALS: BMI 37.6
[2020-09-03] MEDS: METOPROLOL TARTRATE 25 MG TABLET (FP) PO SCH (22:25)
[2020-09-03] MEDS: amLODIPine BESYLATE 10 MG TABLET (FP) PO SCH (22:26)
[2020-09-03] MEDS: BRIMONIDINE TARTRATE 0.1% OPHTHALMIC 5 ML BOTTLE OU SCH (23:08)
[2020-09-03] MEDS: LATANOPROST 0.005% OPHTH SOLN 2.5ML BOTTLE OU SCH (23:08)
[2020-09-04] MEDS ORDERED: SODIUM CHLORIDE 500 ML IV STA (07:20)
[2020-09-04 09:55] LABS: BASO % 0.3 % (0-2.0); HEMATOCRIT 42.7 % (35.4-49); HEMOGLOBIN 14.6 GM/dL (11.7-16.9); LYMPH % 22.6 % (8-40); MCH 31.2 pg (25.7-33.7); MCHC 34.1 g/dl (32.0-35.9); MEAN CELL VOLUME 91.5 fl (80-96); MEAN PLT VOLUME 9.7 fl (7.5-11.1); MONO % 9.1 % (3.8-10.2); PLATELET COUNT 202 K/MM3 (134-434); RBC 4.67 M/mm3 (4.00-5.60); RDW 14.7 % (11.9-15.9); WHITE BLOOD COUNT 9.9 K/mm3 (4.0-10.0)
[2020-09-04] MEDS ORDERED: PT OWN MED DRAWER 7, Y5N ONE (10:06)
[2020-09-04] MEDS: ZINC SULFATE 220 MG CAPSULE (FP) PO SCH (10:09)
[2020-09-04] MEDS: amLODIPine BESYLATE 10 MG TABLET (FP) PO SCH (10:09)
[2020-09-04] MEDS: METOPROLOL TARTRATE 25 MG TABLET (FP) PO SCH ×2 (10:09→21:31)
[2020-09-04] MEDS: DUTASTERIDE 0.5 MG CAP (FP) PO SCH (10:10)
[2020-09-04] MEDS: APIXABAN 5 MG TABLET PO SCH ×2 (10:10→21:31)
[2020-09-04] MEDS: CHOLECALCIFEROL (VIT D3) 1,000 UNIT (25 MCG) TABLET PO SCH (10:10)
[2020-09-04] MEDS: DEXAMETHASONE SOD PHOSPHATE 4 MG/1 ML VIAL IVPUSH SCH (10:10)
[2020-09-04] MEDS: LISINOPRIL 20 MG TABLET PO SCH (10:10)
[2020-09-04] MEDS: ASCORBIC ACID 500 MG TABLET (FP) PO SCH ×2 (10:10→21:31)
[2020-09-04] MEDS: FAMOTIDINE 20 MG TABLET PO SCH ×2 (10:10→21:31)
[2020-09-04] MEDS: DORZOLAMIDE 2% HCL OPHTHALMIC SOLUTION 10 ML BOTTLE OU SCH ×2 (10:11→22:25)
[2020-09-04 10:37] LABS: BLOOD UREA NITROGEN 31.6 mg/dL (7-18); CALCIUM 9.2 mg/dL (8.5-10.1)
[2020-09-04 10:38] LABS: MAGNESIUM 1.9 mg/dL (1.8-2.4)
[2020-09-04 10:39] LABS: PHOSPHOROUS 4.2 mg/dL (2.5-4.9)
[2020-09-04 10:40] LABS: BILIRUBIN,TOTAL 0.9 mg/dL (0.2-1)
[2020-09-04 10:41] LABS: CREATININE 1.3 mg/dL (0.55-1.3); TOT PROT 7.8 g/dl (6.4-8.2)
[2020-09-04 11:09] LABS: ERYTHROCYTE SEDIMENTATION RATE 14 mm/hr (0-20)
[2020-09-04 11:54] LABS: URINE APPEARANCE CLEAR; URINE BILIRUBIN NEGATIVE (NEGATIVE); URINE COLOR YELLOW; URINE GLUCOSE (UA) NEGATIVE (NEGATIVE); URINE KETONE NEGATIVE (NEGATIVE); URINE LEUK ESTERASE NEGATIVE (NEGATIVE); URINE NITRITE NEGATIVE (NEGATIVE); URINE PROTEIN NEGATIVE (NEGATIVE); URINE UROBILINOGEN 0.2 mg/dL (0.2-1.0)
[2020-09-04] MEDS: REMDESIVIR 100 MG in SODIUM CHLORIDE 230 ML IVPB SCH (13:14)
[2020-09-04] MEDS ORDERED: LACTATED RINGERS SOLUTION 1,000 ML/1,000 ML INFUS.BAG IV SCH (16:00)
[2020-09-04] MEDS: BRIMONIDINE TARTRATE 0.1% OPHTHALMIC 5 ML BOTTLE OU SCH (22:24)
[2020-09-04] MEDS: LATANOPROST 0.005% OPHTH SOLN 2.5ML BOTTLE OU SCH (22:25)
[2020-09-05 09:24] LABS: BASO % 0.1 % (0-2.0); HEMATOCRIT 40.2 % (35.4-49); HEMOGLOBIN 13.6 GM/dL (11.7-16.9); LYMPH % 23.4 % (8-40); MCHC 33.9 g/dl (32.0-35.9); MEAN CELL VOLUME 91.3 fl (80-96); MEAN PLT VOLUME 9.6 fl (7.5-11.1); MONO % 10.9 % (3.8-10.2); NEUT % 65.6 % (42.8-82.8); PLATELET COUNT 182 K/MM3 (134-434); RBC 4.41 M/mm3 (4.00-5.60); RDW 15.1 % (11.9-15.9); WHITE BLOOD COUNT 8.1 K/mm3 (4.0-10.0)
[2020-09-05 09:57] LABS: ALBUMIN 3.4 g/dl (3.4-5.0); BLOOD UREA NITROGEN 29.5 mg/dL (7-18); CALCIUM 8.7 mg/dL (8.5-10.1)
[2020-09-05 09:58] LABS: MAGNESIUM 1.9 mg/dL (1.8-2.4)
[2020-09-05 10:00] LABS: BILIRUBIN,TOTAL 0.8 mg/dL (0.2-1)
[2020-09-05 10:01] LABS: CREATININE 1.1 mg/dL (0.55-1.3); TOT PROT 6.7 g/dl (6.4-8.2)
[2020-09-05 10:02] LABS: PHOSPHOROUS 3.6 mg/dL (2.5-4.9)
[2020-09-05] MEDS: DEXAMETHASONE SOD PHOSPHATE 4 MG/1 ML VIAL IVPUSH SCH (10:32)
[2020-09-05] MEDS: CHOLECALCIFEROL (VIT D3) 1,000 UNIT (25 MCG) TABLET PO SCH (10:33)
[2020-09-05] MEDS: FAMOTIDINE 20 MG TABLET PO SCH (10:33)
[2020-09-05] MEDS: ASCORBIC ACID 500 MG TABLET (FP) PO SCH (10:33)
[2020-09-05] MEDS: ZINC SULFATE 220 MG CAPSULE (FP) PO SCH (10:33)
[2020-09-05] MEDS: LISINOPRIL 20 MG TABLET PO SCH (10:33)
[2020-09-05] MEDS: amLODIPine BESYLATE 10 MG TABLET (FP) PO SCH (10:33)
[2020-09-05] MEDS: APIXABAN 5 MG TABLET PO SCH (10:33)
[2020-09-05] MEDS: DUTASTERIDE 0.5 MG CAP (FP) PO SCH (10:33)
[2020-09-05] MEDS: METOPROLOL TARTRATE 25 MG TABLET (FP) PO SCH (10:33)
[2020-09-05] MEDS: DORZOLAMIDE 2% HCL OPHTHALMIC SOLUTION 10 ML BOTTLE OU SCH (10:34)
[2020-09-05 10:47] LABS: ERYTHROCYTE SEDIMENTATION RATE 9 mm/hr (0-20)
[2020-09-05] MEDS: REMDESIVIR 100 MG in SODIUM CHLORIDE 230 ML IVPB SCH (12:53)
[2020-09-05 13:32] VITALS: BP 139/69; PULSE 61; TEMP 97.5
== END 2020-09-05 15:30 | disposition home or self-care (01) | DRG 177 ==
LOC: JER 12:32 → JERBED 18:18 → J5S 09-03 14:05
PROVIDERS: ATTEND Internal Medicine
PROC: 8E0ZXY6 Isolation (ICD-10-PCS; principal; 2020-09-02)
PROC: XW033E5 Introduction of Remdesivir Anti-infective into Peripheral Vein, Percutaneous Approach, New Technology Group 5 (ICD-10-PCS; 2020-09-03)
PROC: XW13325 Transfusion of Convalescent Plasma (Nonautologous) into Peripheral Vein, Percutaneous Approach, New Technology Group 5 (ICD-10-PCS; 2020-09-04)
DX: U07.1 COVID-19 (principal); J12.82 Pneumonia due to coronavirus disease 2019; J96.01 Acute respiratory failure with hypoxia; I50.32 Chronic diastolic (congestive) heart failure; E87.2 Acidosis; R50.9 Fever, unspecified; N40.0 Benign prostatic hyperplasia without lower urinary tract symptoms; I13.0 Hypertensive heart and chronic kidney disease with heart failure and stage 1 through stage 4 chronic kidney disease, or unspecified chronic kidney disease; N18.9 Chronic kidney disease, unspecified; R51.9 Headache, unspecified; E78.00 Pure hypercholesterolemia, unspecified; I10 Essential (primary) hypertension; I48.0 Paroxysmal atrial fibrillation; I25.10 Atherosclerotic heart disease of native coronary artery without angina pectoris; I35.0 Nonrheumatic aortic (valve) stenosis; E66.9 Obesity, unspecified; Z68.37 Body mass index [BMI] 37.0-37.9, adult; Z95.0 Presence of cardiac pacemaker
CPT/HCPCS: 36415; 36430; 70450-TC; 71046-TC-FY; 80053; 81003; 82550; 82553; 82565; 82728; 82962; 83036; 83605; 83615; 83735; 83880; 84100; 84156; 84484; 85025; 85379; 85610; 85651; 86140; 86850; 86900; 86901; 87040; 87086; 87804; 87899; 93005; 93010; 97116-GP; 97162-GP; 99285-25; C9399; C9803; J0131; J1100; P9017; U0003